=== PATIENT | male | born 1965 | race Caucasian/White ===

== ENCOUNTER 2021-04-25 08:47 | Emergency (ER) | payer OTHER, SELFPAY ==
[2021-04-25 09:06] VITALS: BP 108/77; PULSE 96; RESP 16; TEMP 37.1; O2SAT 99
--- NOTE | 2021-04-25 09:27 | ED.MALEGU ---
HPI - Male Genitourinary General Chief complaint: Urogenital-Male Stated complaint: Prostrate,fever,chills Time Seen by Provider: 04/25/21 09:32 Source: patient and RN notes reviewed Mode of arrival: ambulatory Limitations: no limitations History of Present Illness HPI Narrative: 55-year-old male presents with concern for 1 month history of difficulty with urine stream that has evolved into burning with urination, a lump at the base of his testicles, chills, fever, general malaise, urine frequency. Reports history of prostate-itis. He denies nausea or vomiting. He denies intervention. MD Complaint: other (Fever) Related Data Home Medications Medication Instructions Recorded Confirmed amlodipine-benazepril 1 cap PO DAILY 04/25/21 04/25/21 duloxetine 30 mg PO DAILY 04/25/21 04/25/21 Allergies Allergy/AdvReac Type Severity Reaction Status Date / Time No Known Allergies Allergy Verified 04/25/21 09:32 Review of Systems Review of Systems: CONSTITUTIONAL: Reports malaise, chills,fever. GASTROINTESTINAL: Denies abdominal pain, nausea, vomiting, diarrhea, bloody, or mucous stools. GENITOURINARY: Reports dysuria difficulty with urine stream, frequency. Denies urgency or hematuria. SKIN: Denies rash or itching. MUSCULOSKELETAL: Reports mild low back pain. Reports myalgia. All systems reviewed & are unremarkable except as noted in HPI and below PMFSH Comments At time of signature, agree with nursing past medical, surgical, social and family history. There is no relevant family history pertinent to the presenting complaint Exam Narrative: GENERAL: Well-appearing, well-nourished, and in no acute distress. HEAD: Normocephalic. EYES: PERRLA, conjunctivae clear. NECK: Supple. No lymphadenopathy CHEST: Clear to auscultation. No respiratory distress. HEART: Regular rate and rhythm. ABDOMEN: Soft, nontender upon palpation, nondistended, normal active bowel sounds, no palpable or pulsatile masses, no guarding. No CVA tenderness SKIN: Warm, dry, no rash. NEURO: Alert and oriented x3. PSYCH: Normal mood and affect Course Course Emergency Course: Patient is aware of diagnosis, understands and agrees to treatment plan. Anticipatory guidance given. Patient agrees to follow-up as directed and is aware of reasons to seek care at the emergency department. Portions of this record may have been created with voice recognition software Vital Signs Vital signs: Vital Signs Temperature 98.7 F 04/25/21 09:06 Pulse Rate 96 04/25/21 09:06 Respiratory Rate 16 04/25/21 09:06 Blood Pressure 108/77 04/25/21 09:06 Pulse Oximetry 99 04/25/21 09:06 Temperature 98.7 F 04/25/21 09:06 Pulse Rate 96 04/25/21 09:06 Respiratory Rate 16 04/25/21 09:06 Blood Pressure 108/77 04/25/21 09:06 Pulse Oximetry 99 04/25/21 09:06 Reviewed. MDM - Male Genitourinary MDM Narrative Medical decision making narrative: Exam findings and UA show no acute concerns or changes; patient is non-toxic appearing and is in no distress. Patient is appropriate for outpatient treatment and follow-up. Differential Diagnosis Differential diagnosis: Likely urinary tract infection, urethritis, epididymitis, prostatitis and acute retention of urine Lab Data Attestation: I reviewed the patient's lab results. Critical Care Time Critical Care Time Critical Care Time: No Discharge Plan Discharge Clinical Impression: Prostatitis Qualifiers: Prostatitis type: acute Qualified Code(s): N41.0 - Acute prostatitis Patient Disposition: Home, Self-Care Condition: Stable Instructions: Antibiotic Form, Prostatitis (ED) Additional Instructions: We will send a urine culture to the lab; if the culture identifies an organism that the prescribed antibiotic will not treat, you will receive a phone call from an urgent care staff member and an appropriate antibiotic will be prescribed. -Your symptoms should begin to improve within a day of startin
== END 2021-04-25 09:45 | disposition home or self-care (01) ==
PROVIDERS: Emergency Provider Nurse Practitioner
DX: N41.0 Acute prostatitis (principal); E78.00 Pure hypercholesterolemia, unspecified; I10 Essential (primary) hypertension
CPT/HCPCS: 81003; 87077; 87086; 87088; 87186; 99203; G0463